=== PATIENT | female | born 1990 | race Caucasian/White ===

== ENCOUNTER 2016-09-20 04:45 | Inpatient (IN) | payer OTHER ==
[~2016-09-20] VITALS: Ht 162.6 cm; Wt 79.0 kg
[2016-09-20] VITALS (25 sets, daily range): BP systolic 103–130; BP diastolic 53–81
[~2016-09-20 04:45] MED LIST: ACET50TA PO; IBUP80TA PO; PRENTAB74 PO
[2016-09-20] MEDS ORDERED: PENICILLIN G POTASSIUM IV 5 MU in D5W MINI-BAG PLUS 100 ML IV STA ×2 (06:06→09:27)
[2016-09-20 06:09] LABS: MEAN CORPUSCULAR HEMOGLOBIN 31.1 pg (27.0-33.0); MEAN CORPUSCULAR HGB CONC 34.1 g/dl (32.0-36.5); MEAN CORPUSCULAR VOLUME 91.2 fl (80.0-96.0); RED CELL DISTRIBUTION WIDTH 13.3 % (11.5-14.5); WHITE BLOOD COUNT 17.2 K/mm3 (4.0-10.0)
[2016-09-20] MEDS ORDERED: FENTANYL 2MCG/ML ROPIVACAINE 0.2% NACL 250 ML CADD As Ordered ONE (06:44)
[2016-09-20] MEDS ORDERED: diphenhydrAMINE INJ 50MG/ML VIAL (J1200) IV PRN (07:45)
[2016-09-20] MEDS ORDERED: LACTATED RINGER'S 1000 ML IV PRN (07:45)
[2016-09-20] MEDS ORDERED: ePHEDrine SULFATE 25 MG/5 ML(5MG/ML) SYRINGE IV PRN (07:45)
[2016-09-20] MEDS ORDERED: NALOXONE INJ 0.4 MG/1 ML VIAL (J2310) IV PRN (07:45)
[2016-09-20] MEDS ORDERED: ONDANSETRON 4MG/2ML VIAL (J2405) IV PRN (07:45)
[2016-09-20] MEDS ORDERED: EPIDURAL/PCA KEYS XX PRN (07:45)
[2016-09-20] MEDS ORDERED: FENTANYL/ROPIVACAINE/NACL CADD 250 ML EPIDURAL SCH (07:45)
[2016-09-20] MEDS ORDERED: REFRIGERATOR IV KEYS XX PRN (07:45)
[2016-09-20] MEDS ORDERED: EPIDURAL COMMENT XX SCH (07:45)
--- NOTE | 2016-09-20 08:45 | IPNPDOC ---
Text Note Date of Service The patient was seen on 09/20/16 at 08:44. NOTE SBAR at [address] Zee. Active labor and FHT Cat 1. Now s/p epidural, feeling better. Proven to almost 6 lbs. Plan to recheck after second dose GBS prophy in. Sessions VS,Katlyn, I+O VSKatlyn I+O Laboratory Tests 09/20/16 05:57 Red Blood Count 4.24, Mean Corpuscular Volume 91.2, Mean Corpuscular Hemoglobin 31.1, Mean Corpuscular Hemoglobin Concent 34.1, Red Cell Distribution Width 13.3 SESSIONS,DEIRDRE Sousa MD Sep 20, 2016 08:45
[2016-09-20] MEDS ORDERED: OXYTOCIN 30 UNITS IN 0.9% NaCl 500ML IV BAG (J2590) As Ordered ONE (09:25)
--- NOTE | 2016-09-20 09:38 | IPNPDOC ---
Text Note Date of Service The patient was seen on 09/20/16 at 09:36. NOTE Having some variables, pos accels and mod delbert however. Cx C/C/+1. Second dose PCN in soon, first dose given 0618. Will attempt to delay delivery until after 1018 to avoid GBS w/u. Sessions VS,Katlyn, I+O VSKatlyn I+O Laboratory Tests 09/20/16 05:57 Red Blood Count 4.24, Mean Corpuscular Volume 91.2, Mean Corpuscular Hemoglobin 31.1, Mean Corpuscular Hemoglobin Concent 34.1, Red Cell Distribution Width 13.3 SESSIONS,DEIRDRE Sousa MD Sep 20, 2016 09:38
[2016-09-20] MEDS ORDERED: PENICILLIN G POTASSIUM IV 2.5 MU in D5W 100 ML IV SCH ×3 (10:15→13:30)
[2016-09-20] MEDS ORDERED: MEASLES,MUMPS,RUBELLA VACCINE INJ (MMR-II) (90707) SC SCH (11:15)
[2016-09-20] MEDS ORDERED: IBUPROFEN 800 MG TAB PO PRN (11:15)
[2016-09-20] MEDS ORDERED: METOCLOPRAMIDE INJ 10MG/2ML VIAL (J2765) IV PRN (11:15)
[2016-09-20] MEDS ORDERED: ACETAMINOPHEN TAB 650MG DOSE (2X325MG) PO PRN (11:15)
[2016-09-20] MEDS ORDERED: OXYTOCIN DRIP 30 UNITS in APPROPRIATE DILUENT 1 EA IV SCH (11:15)
[2016-09-20] MEDS ORDERED: DIBUCAINE 1% OINTMENT 30GM TOP PRN (11:15)
[2016-09-20] MEDS ORDERED: RHOGAM 300 MCG (1500 IU) INJ (J2790) IM SCH (11:15)
--- NOTE | 2016-09-20 11:23 | DNPDOC ---
Delivery Note Delivery Note DATE OF DELIVERY: Sep 20, 2016 at 05:27 PREDELIVERY DIAGNOSIS: [40]-[4]/7 weeks' gestation and labor. POST DELIVERY DIAGNOSIS: Delivered. PROCEDURE: [Spontaneous vaginal delivery SCRAP DROP OPERATOR: [Sessions] ANESTHESIA: [Epidural]. ESTIMATED BLOOD LOSS: [200] mL. FINDINGS: Score [9]/[9], nuchal cord times [1], loose. Weight pending. DELIVERY SUMMARY: admitted to labor and delivery for active labor and progressed well to C/C and pushed very well, del'd quickly. 2 doses IV GBS prophyhlaxis given prior to delivery. AROM after a few minutes pushing, small amt clear fluid. No delay of the OA vtx or shoulders. Good tone and spont cry , to abdomen. Cord C/C by FOB. Placenta intact with slight traction, fundal massage. Pit going wide open, fundus firm. No lacs. Sessions MD VILLARREAL,DEIRDRE Sousa MD Sep 20, 2016 11:23
[2016-09-20] MEDS: PRENATAL VITAMIN TAB PO SCH (15:48)
[2016-09-20] MEDS: DOCUSATE SODIUM 100 MG CAP PO SCH ×2 (15:48→21:38)
[2016-09-21 06:42] VITALS: BP 112/70
--- NOTE | 2016-09-21 06:52 | IPNPDOC ---
Text Note Date of Service The patient was seen on 09/21/16 at 06:51. NOTE PPD1 prog note Pt states feeling well, minimal pain. VB slowing. Brst feeding OK. No CP/LP/ SOB. Voiding and ambulatory. VSSAF Fundus at U-1, firm LE no CCE a/p: Doing well. Discharge today, to boarding if baby not d/c'd. Sessions VS,Katlyn, I+O VSKatlny I+O Vital Signs Date Time Temp Pulse Resp B/P Pulse Ox O2 Delivery O2 Flow Rate FiO2 09/21/16 06:42 97.9 80 18 112/70 09/20/16 08:15 99 I&O- Last 24 Hours up to 6 AM 09/21/16 06:00 Intake Total 2306 ml Output Total 1400 ml Balance 906 ml SESSIONS,DEIRDRE Sousa MD Sep 21, 2016 06:52
--- NOTE | 2016-09-21 07:01 | DS.PDOC ---
Discharge Summary General Date of Admission Sep 20, 2016 at 05:27 Date of Discharge [id number] Discharge Summary COMPLICATIONS/CHIEF COMPLAINT: Active labor ADMISSION DIAGNOSES: 1. Labor DISCHARGE DIAGNOSES: 1. Normal spontaneous vaginal delivery HOSPITAL COURSE: Patient was admitted for labor by Dr Isbell. Delivery done by Dr Villarreal. Received an epidural. Uncomplicated delivery, no lacerations. Met all discharge criteria on post-delivery day 1. DISCHARGE MEDICATIONS: Motrin, Tylenol, Lanolin, Colace, Nor minipill for control PHYSICAL EXAMINATION ON DISCHARGE: see prog note from this AM VITAL SIGNS: Please see below. DISCHARGE CONDITION: stable DISPOSITION: to home ACTIVITY: Nothing in the vagina for 6-8 weeks. Regular diet. Start the Nor in 3-4 weeks, take every day at the same time. DISCHARGE PLAN AND INSTRUCTIONS: follow up at 6 week visit. Sessions TIME SPENT ON DISCHARGE: Greater than [15] minutes. Vital Signs/I&Os Vital Signs Date Time Temp Pulse Resp B/P Pulse Ox O2 Delivery O2 Flow Rate FiO2 09/21/16 06:42 97.9 80 18 112/70 09/20/16 08:15 99 I&O- Last 24 Hours up to 6 AM 09/21/16 06:00 Intake Total 2306 ml Output Total 1400 ml Balance 906 ml Laboratory Data Labs 24H Laboratory Tests 2 09/20/16 16:32: Serology Scanned Report Hepatitis B Testing Medications Scheduled () Tab 1 PO DAILY Acetaminophen (Tylenol) 500 Mg Tab 1,000 MG PO Q4HP Ibuprofen (Motrin, Advil) 800 Mg Tab 800 MG PO Q6 Allergies Coded Allergies: No Known Allergies (Unverified , 04/18/13) DEIRDRE VILLARREAL MD Sep 21, 2016 07:00
[2016-09-21] MEDS: DOCUSATE SODIUM 100 MG CAP PO SCH (07:49)
[2016-09-21] MEDS: PRENATAL VITAMIN TAB PO SCH (07:50)
[2016-09-21] MEDS ORDERED: ACET50TA PO (09:27)
[2016-09-21] MEDS ORDERED: PRENTAB9 PO (09:27)
[2016-09-21] MEDS ORDERED: IBUP-1114 PO (09:27)
== END 2016-09-21 11:40 | disposition home or self-care (01) | DRG 775 ==
LOC: M LDO 04:45 → M LDI 05:27 → M OBS 13:07
PROVIDERS: ADMIT Obstetrics & Gynecology; ATTEND Obstetrics & Gynecology
PROC: 10E0XZZ Delivery of Products of Conception, External Approach (ICD-10-PCS; principal; 2016-09-20)
PROC: 10907ZC Drainage of Amniotic Fluid, Therapeutic from Products of Conception, Via Natural or Artificial Opening (ICD-10-PCS; 2016-09-20)
DX: O48.0 Post-term pregnancy (principal); Z37.0 Single live birth; Z3A.40 40 weeks gestation of pregnancy; O99.824 Streptococcus B carrier state complicating childbirth; O69.82X0 Labor and delivery complicated by other cord entanglement, without compression, not applicable or unspecified